=== PATIENT | female | born 1980 | race Caucasian/White ===

== ENCOUNTER 2020-12-25 02:12 | Emergency (ER) | payer SELFPAY ==
[~2020-12-25] VITALS: Ht 162.6 cm; Wt 88.0 kg
--- NOTE | 2020-12-25 02:20 | NUR ---
Pt here for heavy vaginal bleeding starting today, pt soaked through 6-8 pads. Pt reports the blood has large clots in it.
[2020-12-25 03:08] LABS: CARBON DIOXIDE 23 mmol/L (21-32); CHLORIDE 103 mmol/L (98-107); CREATININE 0.6 mg/dL (0.6-1.3); GLUCOSE 121 mg/dL (74-106); POTASSIUM 3.7 mmol/L (3.5-5.1); UREA NITROGEN, BLOOD 19 mg/dL (7-18)
[2020-12-25 03:13] LABS: ALANINE AMINOTRANSFERASE 27 U/L (14-59); ALKALINE PHOSPHATASE 57 U/L (50-136); ASPARTATE AMINOTRANSFERASE 13 U/L (15-37); BILIRUBIN,TOTAL 0.4 mg/dL (0.2-1.0); TOTAL PROTEIN, SERUM 7.9 g/dL (6.4-8.2)
[2020-12-25 03:19] LABS: *BILIRUBIN,URIN NEGATIVE (NEGATIVE); *BLOOD, URINE 3+ (NEGATIVE); *CLARITY,URINE TURBID (CLEAR); *KETONES,URINE 1+ (NEGATIVE); *UROBILINOGEN,URINE 0.2 E.U./dl (NORMAL); LEUKOCYTE ESTERASE ,URINE NEGATIVE (NEGATIVE); NITRITE, URINE NEGATIVE (NEGATIVE); PH,URINE 6.5 (5.0-8.0); UGLUCOSE NEGATIVE (NEGATIVE)
[2020-12-25 03:19] LABS: BILIRUBIN,DIRECT < 0.1 mg/dL (0.0-0.2)
[2020-12-25 03:20] LABS: *COLOR,URINE BLOODY (YELLOW)
[2020-12-25 03:21] LABS: BACTERIA,URINE NONE SEEN /HPF (NONE SEEN); RBC,URINE 0-3 /HPF (0-3); SQUAMOUS EPITHELIAL CELL,UR NONE SEEN /HPF (NONE SEEN); WBC,URINE TNTC /HPF (0-3)
[2020-12-25 03:22] LABS: *URINE HCG, QUAL NEGATIVE (NEGATIVE)
[2020-12-25 03:22] LABS: HEMATOCRIT 37.8 % (31.2-41.9); MEAN CORPUSCULAR HEMOGLOBIN 28.6 uug (24.7-32.8); MEAN CORPUSCULAR VOLUME 85.2 fL (75.5-95.3); PLATELET COUNT (AUTO) 278 K/uL (179-408)
--- NOTE | 2020-12-25 05:02 | NUR ---
Patient discharged to home in stable condition. Written and verbal after care instructions given. Patient verbalizes understanding of instructions. Stressed follow up or return to ER for worsening s/s. Pt walks with steady gait. NAD. VSS.
[2020-12-25 06:30] VITALS: BP 149/86
== END 2020-12-25 05:00 | disposition home or self-care (01) ==
LOC: ER 02:24
DX: N93.9 Abnormal uterine and vaginal bleeding, unspecified (principal)
CPT/HCPCS: 36415; 76857; 84703; 85025; 85730; 87086; A4663